=== PATIENT | male | born 1955 | race Caucasian/White ===

== ENCOUNTER 2021-07-31 09:20 | Emergency (ER) | payer MEDICARE, OTHER ==
[~2021-07-31] VITALS: Ht 175.3 cm; Wt 77.1 kg
--- NOTE | 2021-07-31 09:44 | NUR ---
Dr Cuenca at the bedside for MSE.
[2021-07-31] MEDS ORDERED: MUPI22OI2 TP (11:22)
--- NOTE | 2021-07-31 11:43 | NUR ---
Patient discharged to home in stable condition. Written and verbal after care instructions given. Patient verbalizes understanding of instructions. Stressed follow up or return to ER for worsening s/s.
== END 2021-07-31 11:44 | disposition home or self-care (01) ==
LOC: ER 09:20
DX: T16.1XXA Foreign body in right ear, initial encounter (principal); X58.XXXA Exposure to other specified factors, initial encounter; Y93.E8 Activity, other personal hygiene; Y92.89 Other specified places as the place of occurrence of the external cause; H60.11 Cellulitis of right external ear; R03.0 Elevated blood-pressure reading, without diagnosis of hypertension
CPT/HCPCS: A4663

== ENCOUNTER 2021-08-03 08:52 | Emergency (ER) | payer OTHER ==
[~2021-08-03] VITALS: Ht 175.3 cm; Wt 77.1 kg
[~2021-08-03 08:52] MED LIST: MUPI22OI2 TP
[2021-08-03] MEDS ORDERED: AMOX-427 PO (10:10)
--- NOTE | 2021-08-03 10:17 | NUR ---
Gave pt RX and d/c instructions, pt verbalized understanding.
== END 2021-08-03 10:20 | disposition home or self-care (01) ==
LOC: ER 08:52
DX: J01.90 Acute sinusitis, unspecified (principal)
CPT/HCPCS: A4663